=== PATIENT | male | born 1970 | race Caucasian/White ===

== ENCOUNTER 2021-06-08 07:28 | Outpatient (CLI) | payer OTHER, SELFPAY ==
--- NOTE | 2021-06-22 16:44 | WPDHOMESLEEP ---
Sleep Study - Home Unattended Date of Study: 06/08/21 <Emily Richmond DO - Last Filed: 06/22/21 16:59> Ordering Provider: Amanda Yanes MD <Emily Richmond DO - Last Filed: 06/22/21 16:59> Interpreting Provider: Emily Richmond DO <Emily Richmond DO - Last Filed: 06/22/21 16:59> Home Sleep Study Type: Apnea Link Air <Emily Richmond DO - Last Filed: 06/22/21 16:59> Height: 1.96 m <Emily Richmond DO - Last Filed: 06/22/21 16:59> Weight: 129.274 kg <Emily Richmond DO - Last Filed: 06/22/21 16:59> Body Mass Index: 33.7 <Emily Richmond DO - Last Filed: 06/22/21 16:59> Neck Circumference (inches): 19.25 <Emily Richmond DO - Last Filed: 06/22/21 16:59> [place]: 5 <Emily Richmond DO - Last Filed: 06/22/21 16:59> Reason for Sleep Study Loud snoring, witnessed apneas, falling asleep while driving <Emily Richmond DO - Last Filed: 06/22/21 16:59> Sleep History The patient is a 50-year-old male with Anxiety/depression, hyperlipidemia and arthritis that had his PCP order a HSAT due to loud snoring, witnessed apneas and falling asleep while driving multiple times. The patient used to drink alcohol but has quit within the past month. He was started on Ambien by his PCP for sleep. the patient occasionally awakens from sleep short of breath. He rarely awakens at night with heartburn, belching or cough. He constantly snores loud enough that others complain. He frequently has trouble sleeping when he has a cold. He occasionally wakes up gasping for air throughout the night. He occasionally has breathing problems at night observed by others. He occasionally sweats excessively at night. He denies heart palpitations or irregular beats throughout the night. He rarely falls asleep during the day but has fallen asleep while driving. He denies sleep paralysis and cataplexy. He occasionally has trouble at work due to sleepiness. He rarely experiences vivid dreamlike scenes upon awakening or falling asleep. He occasionally has nightmares. He occasionally feels sad, depressed or anxious. He occasionally kicks throughout the night. He frequently experiences crawling and aching feelings in his legs. He occasionally has leg pain during the night. He rarely grinds his teeth during sleep and denies jaw pain in the morning. He is occasionally bothered by pain during the day but is rarely awakened by pain during the night. He constantly wakes up feeling stiff in the morning with sore and achy muscles. The patient goes to bed at 9:00 p.m. on the weekdays and between 10 and 11:00 p.m. on the weekends. It takes him a couple minutes to fall asleep. He typically wakes up 7-10 times per night. He urinates and then goes back to sleep immediately. He wakes up at 5:00 a.m. on the weekdays and between 9 and 10:00 a.m. on the weekends. He typically gets 7-8 hours of sleep per night. He will stay in the bed for a couple minutes after awakening in the morning. He currently lives with his significant other. His work does not involve rotating shifts. He does not consume any caffeinated beverages within 2 hours of going to bed. He does not engage in physical exercise before bedtime. He will read before falling asleep. He does not take naps in the afternoon or the evening. He will drink an entire pot of coffee per day. He currently smokes half a pack of cigarettes per day. He denies current alcohol and recreational drug use. <Emily Richmond DO - Last Filed: 06/22/21 16:59> [facility] Past Medical History Medical History: Medical History Anxiety Arthritis Obstructive sleep apnea <Emily Richmond DO - Last Filed: 06/22/21 16:59> Social History Social History: Social History Smoking status: Current every day
[2021-06-22 16:59] VITALS: BMI 33.7
== END 2021-06-09 12:01 | disposition home or self-care (01) ==
LOC: ANHCSM 07:28
PROVIDERS: PCP Family Medicine Sports Medicine; Visit Provider Internal Medicine Critical Care Medicine
DX: G47.9 Sleep disorder, unspecified (principal)
CPT/HCPCS: 95806

== ENCOUNTER 2023-12-06 07:09 | Emergency (ER) | payer OTHER, SELFPAY ==
[2023-12-06] VITALS (11 sets, daily range): BP systolic 159–201; BP diastolic 94–118; PULSE 82–101; RESP 16–26; TEMP 36.6; O2SAT 96–99
--- NOTE | ~2023-12-06 | CT_ITS ---
EXAMINATION: CT abdomen pelvis w con DATE: 12/06/2023 09:48 INDICATION: Epigastric pain TECHNIQUE: Computed tomography (CT) of the abdomen and pelvis was performed with 100 cc Omnipaque 350 intravenous contrast. The dose-length product was 1550.14 mGy-cm. Automated exposure control and ite rative reconstruction technique were employed. COMPARISON: None. FINDINGS: Dependent atelectasis. Heart size normal. No significant pleural or pericardial effusion. F atty infiltration of the liver. The spleen, adrenal glands are unremarkable. There are bilateral mi l cysts. There is moderate phlegmonous change surrounding the tail of the pancreas with hypoperfusion of the tail, consistent with necrotizing pancreatitis. Findings compatible with acute pancreatitis. No evidence for abscess or pseudocyst formation. Nonobstructive bowel gas pattern. Small fat-containi ng umbilical hernia. IMPRESSION: 1. 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 Reviewed, dictated and finalized at location B. IMPRESSION: 1. Necrotizing pancreatitis involving the tail of the pancreas (less than 30% o f pancreas involved).
[2023-12-06 07:54] LABS: Basophils Absolute Auto 0.1 K/mm3 (0.0-0.1); Basophils Percent Auto 0.9 % (0.2-1.2); Eosinophils Absolute Auto 0.1 K/mm3 (0-0.3); Eosinophils Percent Auto 0.8 % (0-4.4); Hematocrit 47.1 % (42.0-52.0); Hemoglobin 15.9 g/dL (14.0-18.0); Immature Granulocyte Absolute 0.04 K/mm3 (0.00-0.031); Immature Granulocyte Percent A 0.4 % (0-0.5); Lymphocytes Absolute Auto 1.19 K/mm3 (0.9-3.2); Mean Corpuscular HGB Conc 33.8 g/dl (32-36); Mean Corpuscular Hemoglobin 30.3 pg (26-34); Mean Corpuscular Volume 89.9 fl (80-100); Mean Platelet Volume 8.3 fl (7.4-10.4); Monocytes Absolute Auto 0.6 K/mm3 (0.1-0.6); Monocytes Percent Auto 6.5 % (2.6-8.5); Neutrophils Absolute Auto 7.2 K/mm3 (1.3-6.7); Neutrophils Percent Auto 78.4 % (45.5-73.1); Platelet Count Result 196 k/mm3 (150-375); Red Blood Count 5.24 M/mm3 (4.6-6.20); Red Cell Distribution Width 15.2 % (11.5-14.5); White Blood Count 9.2 K/mm3 (4.5-10.0)
[2023-12-06 08:21] LABS: Alanine Aminotransferase 25 U/L (6-50); Alkaline Phosphatase 108 U/L (38-126); Anion Gap 13 mmol/L (4-12); Aspartate Amino Transferase 29 U/L (17-59); Bilirubin,Total 1.1 mg/dL (0.2-1.3); Blood Urea Nitrogen 8 mg/dL (9-20); Calcium 9.8 mg/dL (8.4-10.2); Carbon Dioxide 18 mmol/L (22-30); Chloride 103 mmol/L (98-107); Estimated Glomerular Filt Rate > 60; Glucose 154 mg/dL (65-110); Potassium 4.1 mmol/L (3.4-5.0); Sodium 134 mmol/L (137-145)
[2023-12-06 08:44] LABS: Lipase 4493 U/L (23-300)
--- NOTE | 2023-12-06 09:19 | ED.ABDPAIN ---
HPI - Abdominal Pain General Chief Complaint: Abdominal Pain <SUKHWINDER Tabares Last Filed: 12/06/23 18:56> Stated Complaint: i'm sick <SUKHWINDER Tabares Last Filed: 12/06/23 18:56> Time Seen by Provider: 12/06/23 09:07 <SUKHWINDER Tabares Last Filed: 12/06/23 18:56> Source: patient <SUKHWINDER Tabares Last Filed: 12/06/23 18:56> Mode of arrival: ambulatory <SUKHWINDER Tabares Last Filed: 12/06/23 18:56> Limitations: no limitations <SUKHWINDER Tabares Last Filed: 12/06/23 18:56> History of Present Illness HPI narrative: this is a 53-year-old male who presents to the ED with chief complaint of abdominal pain with N/V x2 days. Patient reports long history of alcohol use and has been on a 2 month binge. His family member is bedside and confirming this history. States he has been in withdrawals many times in the past but never had seizures. Patient reports he has severe abdominal pain to the epigastrium and goes through to the back. States he has also been told he has high triglycerides in the past. Endorses sweats. Denies diarrhea, urinary symptoms, chest pain, shortness of breath, seizure, syncope. <SUKHWINDER Tabares Last Filed: 12/06/23 18:56> Related Data Home Medications: Home Medications Medication Instructions Recorded Confirmed atorvastatin 20 mg tablet 20 mg PO DAILY 04/13/21 celecoxib 200 mg capsule 200 mg PO DAILY 04/13/21 citalopram 20 mg tablet 20 mg PO DAILY 04/13/21 fenofibrate 54 mg tablet 54 mg PO DAILY 04/13/21 zolpidem 5 mg tablet 5 mg PO ONCE 04/13/21 <SUKHWINDER Tabares Last Filed: 12/06/23 18:56> Allergies/Adverse Reactions: Allergies Allergy/AdvReac Type Severity Reaction Status Date / Time No Known Allergies Allergy Verified 12/06/23 07:23 <SUKHWINDER Tabares Last Filed: 12/06/23 18:56> Review of Systems Review of Systems: All systems as dictated in HPI <Timmy Lewis PA-C - Last Filed: 12/06/23 18:56> [facility] Past Medical History Medical History: Medical History Anxiety Arthritis Obstructive sleep apnea <Timmy Lewis PA-C - Last Filed: 12/06/23 18:56> Social History Social History: Social History Smoking status: Current every day smoker Tobacco type: cigarettes Alcohol intake: never Substance use: current Substance use type: unknown <Timmy Lewis PA-C - Last Filed: 12/06/23 18:56> Exam Narrative: GENERAL: Diaphoretic and appears in pain. No tremor HEAD: Normocephalic, atraumatic. EYES: PERRLA and EOMI. ENT: Nares clear, no rhinorrhea or epistaxis. Mucous membranes moist. Oropharynx without tonsillar hypertrophy exudate or other lesions. NECK: Supple. No adenopathy or masses. CHEST: No respiratory distress. Clear to auscultation. No wheezes rales or rhonchi HEART: Regular rate and rhythm. No murmur heard. Normal peripheral pulses. ABDOMEN: Epigastric tenderness present. Soft, nondistended, normal active bowel sounds. MSK: Normal range of motion. No edema. SKIN: Warm, dry, no rash. NEURO: Alert and oriented x3. No focal deficits. PSYCH: Normal mood and affect. <Timmy Lewis PA-C - Last Filed: 12/06/23 18:56> Course RESEARCH MANAGER/PA Physician Supervision I was aware this patient was in the department. [facility] discuss patient during transfer process which is indicated given lack of GI services at this hospital. I was not personally involved with patient care and did not evaluate them but was available for consultation as needed. <Sofia Beaulieu MD - Last Filed: 12/10/23 19:29> Vital Signs Vital signs: Vital Signs Temperature 98 F 12/06/23 07:15 Pulse Rate 98 12/06/23 07:15 Respiratory Rate 16 12/06/23 07:15 Blood Pressure 175/112 H 12/06/23 07:15 Pulse Oximetry 98 12/06/23 07:15 Oxygen Del
[2023-12-06] MEDS: ONDANSETRON INJ 4 MG/2 ML VIAL (09:23)
[2023-12-06] MEDS: LACTATED RINGERS 2,000 ML 999 ML (09:24)
[2023-12-06] MEDS: HYDROmorphone HCL INJ (*CRX) 1 MG/ML SYR (09:24)
[2023-12-06] MEDS: LORazepam INJ (*CRX) 2 MG/ML VIAL (09:32)
[2023-12-06 10:02] LABS: Appearance Urine Clear (Clear); Bilirubin Urine Negative (Negative); Blood Urine Negative (Negative); Color Urine Yellow (Yellow); Glucose Urine UA Negative (Negative); Ketones Urine Negative (Negative); Leukocyte Esterase Ur Negative LEU/UL (Negative); Nitrate Urine Negative (Negative); Protein Urine Negative (Negative); Urobilinogen Urine 0.2 mg/dL (<2.0); pH Urine 5.5 (5.0-9.0)
[2023-12-06 10:24] LABS: Specific Grav Ur 1.057 (1.001-1.035)
[2023-12-06 10:25] LABS: Add Urine Microscopic? NO
[2023-12-06] MEDS: HYDROmorphone HCL INJ (*CRX) 1 MG/ML SYR 0.5 MG IV PUSH (10:25)
[2023-12-06 10:38] LABS: Fractional Inspired Oxygen 21 %; HCO3 VBG 25.1 mEq/l (24.0-30.0); PCO2 VBG 42.6 mmHg (42.0-48.0); PO2 VBG 28.5 mmHg (35.0-45.0); pH VBG 7.388 (7.300-7.400)
[2023-12-06 10:40] LABS: Device ROOM AIR
[2023-12-06 10:55] LABS: Lactate Dehydrogenase 153 U/L (120-246)
[2023-12-06] MEDS: HYDROmorphone HCL INJ (*CRX) 1 MG/ML SYR IV PUSH ×2 (10:55→12:39)
[2023-12-06 10:56] LABS: Lactic Acid Reflex 2.7 mmol/L (0.7-2.0)
[2023-12-06 11:27] LABS: Triglycerides 1228 mg/dL (<150)
[2023-12-06] MEDS: LORazepam INJ (*CRX) 2 MG/ML VIAL 0.5 MG IV PUSH (12:38)
[2023-12-06 13:42] LABS: Reflex Lactic Acid Yes or No Add Lactic
== END 2023-12-06 13:00 | disposition short-term general hospital (02) ==
PROVIDERS: Student in an Organized Health Care Education/Training Program; Emergency Provider Physician Assistant; PCP Family Medicine Sports Medicine
DX: K85.91 Acute pancreatitis with uninfected necrosis, unspecified (principal); M19.90 Unspecified osteoarthritis, unspecified site; G47.33 Obstructive sleep apnea (adult) (pediatric); F41.9 Anxiety disorder, unspecified; F17.210 Nicotine dependence, cigarettes, uncomplicated
CPT/HCPCS: 36415; 74177; 80053; 81003; 82803; 83605; 83615; 83690; 84478; 85025; 96361; 96374; 96375; 96376; 99285; J1170; J2060; J2405; J7120; Q9967